=== PATIENT | female | born 1955 | race Caucasian/White ===

== ENCOUNTER → 2018-08-21 | Day surgery (SDC) | payer OTHER ==
--- NOTE | 2018-08-21 12:19 | RAD REPORT ---
EXAM DESCRIPTION: Ultrasound-guided vacuum assisted left breast core biopsy CLINICAL HISTORY: Breast mass N63.0, R92.8 COMPARISON: No comparisons FINDINGS: Informed consent was obtained and time-out was performed. The patient's left breast was prepped and draped in the usual sterile fashion. 1% lidocaine was used for local anesthetic purposes. Utilizing aseptic technique and ultrasound guidance, a 12 gauge vacuum assisted core biopsy device wa s used to obtain 2 core specimens through the mass of interest. A post biopsy clip was then placed. All collected material was sent for cytology. Patient tolerated procedure well. IMPRESSION: Successful ultrasound guided vacuum assisted left breast mass biopsy.
== END ==
LOC: DS 10:40
PROVIDERS: ATTEND General Practice
DX: C50.912 Malignant neoplasm of unspecified site of left female breast (principal); Z17.0 Estrogen receptor positive status [ER+]
CPT/HCPCS: 19083; 88305

== ENCOUNTER 2020-04-19 09:09 | Emergency (ER) | payer OTHER ==
--- OUTSIDE RECORDS SUMMARY | 2020-04-19 09:15 | XMS REPORT | Clinical Summary ---
:1955 Author Organization [facility] Address [address] [place] [address] Care Team Providers Name Role Phone Reid Duran MD Primary Care Provider Allergies Active Allergy Reactions Severity Noted Date Comments Amoxicillin-Pot Clavulanate Itching, Rash Low 04/07/2005 Codeine GI Intolerance Low 04/07/2005 Medications Medication Sig Dispensed Refills Start Date End Date Status fluticasone/vilantero Inhale 1 puff every 0 Active l (BREO ELLIPTA INHL) morning. loratadine (CLARITIN) Take 10 mg by mouth 0 Active 10 mg tablet daily as needed for allergies. albuterol (PROAIR Inhale 1 puff daily 0 Active HFA) 90 mcg/actuation as needed for inhaler wheezing or shortness of breath (rescue inhaler). Active Problems Not on file Surgical History Surgery Date Site/Laterality Comments LAMINECTOMY c4-5 CHOLECYSTECTOMY HERNIA REPAIR HYSTERECTOMY BREAST EXCISIONAL BIOPSY Right MASTECTOMY, PARTIAL 10/16/2018 Breast/Left Procedure: L EFT ROBER CLIMATE CHANGE RISK ASSESSOR LOCALIZATION SEG MENTAL MASTECTOMY; Amando geon: Jo Ball MD; Location: [facility] Main OR; S ervice: General; Latera lity: Left; BIOPSY, LYMPH NODE, SENTINEL 10/16/2018 Breast/Left Pro cedure: LEFT INTRAOPERATIVE LYMPHATIC MAPPIN G SENTINEL LYMPH NODE BIOPS Y; Surgeon: Jo Ball MD; Location: [facility] OR; Service: General ; Laterality: Left; Medical History Medical History Date Comments Asthma Wears glasses Influenza vaccination not up to date 2017 Exercise intolerance NO FORMAL EXERCISE, SOB WITH ASTHMA FLARE UP, USUALLY NO SOB/C P Family History Medical History Relation Name Comments Heart disease Father Hyperlipidemia Mother Hypertension Mother Thyroid disease Mother Relation Name Status Comments Father Mother Alive Social History Tobacco Use Types Packs/Day Years Used Date Never Smoker Smokeless Tobacco: Never Used Alcohol Use Drinks/Week oz/Week Comments Never Alcohol Habits Answer Date Recorded How often do you have a drink containing alcohol? Never 10/15/2018 How many drinks containing alcohol do you have on a typical Not asked day when you are drinking? How often do you have six or more drinks on one occasion? No t asked Sex Assigned at Date Recorded Not on file Last Filed Vital Signs Not on file Plan of Treatment Health Maintenance Due Date Last Done Comments COVID-19 VACCINE (1 of 2) 1972 CERVICAL CANCER SCREENING 1977 COLONOSCOPY SCREENING 2006 SHINGLES VACCINES (#1) 2006 INFLUENZA VACCINE 11/06/2019 BREAST CANCER SCREENING 10/15/2020 10/15/2018 Results Not on fileafter 04/19/2019 Advance Directives For more information, please contact: [phone] Type Date Recorded Patient Oracle Etl Developer Explanati on Advance Directives, Living Will 10/15/2018 9:22 AM and Medical Power of Registered Vascular Technologist (Rvt)
--- OUTSIDE RECORDS SUMMARY | 2020-04-19 09:15 | XMS REPORT | Continuity of Care Document ---
:1955 Author Organization [facility] t Address [address] [place] [address] Care Team Providers Name Role Phone Reid Duran MD Primary Care Physician Renee ALEJANDRO, Megha Mathews Attending Clinician [phone] Andrew MCDONNELL Attending Clinician Luis JAY, F Attending Clinician Unavailable Payers Payer Name Policy Type Policy Number Effective Date Expiration Date S tyrone BRIGHT MANAGED [id number] 2012 MD Abbi agosto CARECIGNA O 00:00:00 POS OPEN [id number] 2012-Rafa Becker Problems Condition Condition Condition Status Onset Resolution Last Treating Co mments Source Name Details Category Date Date Treatment Clinician Date 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 Allergies, Adverse Reactions, Alerts Allergy Allergy Status Severity Reaction(s) Onset Inactive Treating Comm ents Source Name Type Date Date Clinician Amoxicil Propensi Active Itching, [place] adam-Pot ty to Rash 04-07 Methodi Clavulan adverse 00:00: st ate reaction 00 s to drug Codeine Propensi Active GI Leonardo ty to Intolerance 04-07 Metho di adverse 00:00: st reaction 00 s to drug Family History Family Member Diagnosis Comments Start Date Stop Date Source Natural father Heart disease [place] [facility] Natural father -Other cancer Sky rson Natural mother Hyperlipidemia [place] Natural mother Hypertension Leonardo [facility] Natural mother Thyroid disease [place] Maternal aunt Cancer MD Martinez Paternal grandmother -Liver cancer Jayden Juan Social History Social Habit Start Date Stop Date Quantity Comments [facility] St[facility] Dr[facility] Meth odist Alcohol Binge Sex Assigned At F MD Stafford on Tobacco use and 2018-11-25 2018-11-25 Never used MD [place] on exposure 00:00:00 00:00:00 Alcohol intake 2018-11-25 2018-11-25 Lifetime MD Go n 00:00:00 00:00:00 non-drinker (finding) History SDOH 2018-10-15 2018-10-15 1 [place] Meth odist Alcohol Frequency 00:00:00 00:00:00 Tobacco Comment 2018-09-15 2018-09-15 My DAD smoked in MD Martinez 00:00:00 00:00:00 the house when I lived at home until I was 20 years old Smoking Status Start Date Stop Date Source Never smoker MD Martinez Medications Ordered Filled Start Stop Current Ordering Indication Dosage Frequency Signature Comments Components Source Medication Medication Date Date Medication? Clinician (SIG) Name Name loratadine 2019-04 Yes 10mg Take 10 mg M D (CLARITIN) 0-31 by mouth Yair so 10 mg 08:20: daily as n tablet 35 needed for allergies. acetaminoph 2019-04 Yes 1000mg Take 1,000 MD en 0-31 mg by Anderso (TYLENOL) 08:20: mouth n 500 mg 35 every 6 tablet (six) hours as needed for mild pain. naproxen 2019-04 Yes Take by sodium 0-31 mouth as Anderrol (ALEVE 08:20: needed. n ORAL) 35 albuterol 2019-04 Yes Inhale by (Ventolin 0-31 mouth. Anderso HFA) 90 08:20: n mcg/puff 35 inhaler fluticasone Yes 1{puff} QD Inhale 1 Leonardo /vilanterol 7-12 puff every Me thodi (BREO 21:36: morning. st ELLIPTA 21 INHL) loratadine Yes 10mg Q24H Take 10 mg [place] (CLARITIN) 7-12 by mouth Metho di 10 mg 21:36: daily as st tablet 21 needed for allergies. albuterol Yes 1{puff} Q24H Inhale 1 [place] (PROAIR 7-12 puff daily Method i HFA) 90 21:36: as needed st mcg/actuati 21 for on inhaler wheezing or shortness of breath (rescue inhaler). fluticasone 2017-0 Yes daily. MD /vilanterol 04-07 Anderrol (BREO 00:00: n ELLIPTA 00 INHALATION) Vital Signs Vital Name Observation Time Observation Value Comments Source Systolic blood pressure 2019-09-14 16:56:41 123 mm[Hg] MD Martinez Diastolic blood pressure 2019-09-14 16:56:41 82 mm[Hg] MD Martinez Heart rate 2019-09-14 16:56:41 87 /min MD Yair felipe Body temperature 2019-09-14 16:56:41 36.72 Maribel MD Arnoldo hodge Respiratory rate 2019-09-14 16:56:41 18 /min MD Arnoldo hodge Body weight 2019-09-14 16:56:41 99.5 kg MD Yair felipe BMI 2019-09-14 16:56:41 40.89 kg/m2 MD Yair felipe Procedures Procedure Date / Time Performed Performing Clinician Sourc e MAMMO DIGITAL DIAGNOSTIC 2019-09-14 14:13:00 Td Morales MD BILATERAL W EDY Plan of Care Planned Activity Planned Date Details Comments Source Future Scheduled 2020-10-15 BREAST CANCER [facility] thodist Test 00:00:00 SCREENING [code = BREAST CANCER SCREENING] Future Scheduled 2019-11-06 INFLUENZA VACCINE [place] Test 00:00:00 [code = INFLUENZA VACCINE] Future Scheduled 2006 COLONOSCOPY SCREENING [facility] Test 00:00:00 [code = COLONOSCOPY SCREENING] Future Scheduled 2006 SHINGLES VACCINES [place] Test 00:00:00 (#1) [code = SHINGLES VACCINES (#1)] Future Scheduled [address] [facility] thodist Test 00:00:00 malignant neoplasm of cervix (procedure) [code = 747741494] Future Scheduled 1972 COVID-19 VACCINE (1 [place] Test 00:00:00 of 2) [code = COVID-19 VACCINE (1 of 2)] Encounters Start End Encounter Admission Attending Care Care Encounter Source Date/Time Date/Time Type Type Clinicians Facility Department ID 2018-10-16 2018-10-16 Outpatient [facility] [id number] 004 [place] 00:00:00 00:00:00 Jen DURAN Results Test Description Test Time Test Comments Results Result Sourc e Comments Mammography There is no MD Juan Huff 9 mammographic evidence Diagnostic 14:17:32 of malignancy. Routine Bilateral with follow-up mammogram in Ed[place] 1 year is recommended. BI-RADS Category 2:Benign Finding(s) Interface, Radiology Results In - 09/14/2019 9:17 AM CDTCLINICAL INDICATION:Patient is a 63 year old female and is seen for breast cancer MAMMO DIGITAL DIAGNOSTIC BILATERAL W TOMODigital Mammogram evaluated with Computer Aided Detection (CAD). COMPARISON:Comparison is made with prior exams dating back to 08/18/2018. FINDINGS:There are scattered areas of fibroglandular density. 1: There is a new post surgical scar with associated surgical clips in the leftbreast. 2: There are multiple post surgical scars in the right breast. A biopsy clip is identified in the left breast denoting site of stereotacticbiopsy demonstrating radial scar. Tomosynthesis performed in CC and MLO projections. IMPRESSION:There is no mammographic evidence of malignancy. Routine follow-up mammogram in 1 year is recommended. BI-RADS Category 2:Benign Finding(s)
[2020-04-19 10:06] LABS: Basophils % 1.1 % (0-1.3); Lymphocytes % 25.2 % (15.3-44.8); MPV 10.8 fL (7.6-11.3); RBC Red Blood Cell Count 5.17 M/uL (3.86-4.86)
[2020-04-19] MEDS ORDERED: KETOROLAC 30 MG/ML INJ ONE (10:23)
[2020-04-19] MEDS ORDERED: COLCHICINE 0.6 MG TAB ONE ×2 (10:23→13:14)
[2020-04-19 12:08] LABS: Potassium 4.1 mmol/L (3.5-5.1); Uric Acid 7.7 mg/dL (2.6-6.0)
--- NOTE | 2020-04-19 12:44 | ER ---
Nurse's Notes [facility] Name: Jojo Dutton Age: 64 yrs Sex: Female : 1955 Arrival Date: 04/19/2020 Time: 09:11 Bed 18 Private MD: Diagnosis: Gout Presentation: 04/19 09:12 Chief complaint: Patient states: right foot pain and swelling that began Friday. Pt aa5 denies known injury. 09:12 Coronavirus screen: Client denies travel out of the [place] in the last 14 days. At this aa5 time, the client does not indicate any symptoms associated with coronavirus-19. Ebola Screen: Patient negative for fever greater than or equal to 101.5 degrees Fahrenheit, and additional compatible Ebola Virus Disease symptoms. Risk Assessment: Do you want to hurt yourself or someone else? Patient reports no desire to harm self or others. Onset of symptoms was April 2020. 09:12 Acuity: CYNTHIA 3 aa5 09:12 Method Of Arrival: Wheelchair aa5 10:23 Initial Sepsis Screen: Does the patient meet any 2 criteria? No. Patient's initial jd3 sepsis screen is negative. Does the patient have a suspected source of infection? No. Patient's initial sepsis screen is negative. Historical: - Allergies: 09:23 Augmentin; aa5 09:23 Codeine; aa5 - Home Meds: 09:23 Breo Ellipta inhalation inhalation [Active]; aa5 - PMHx: 09:23 Asthma; aa5 - Immunization history:: Adult Immunizations unknown. - Social history:: Smoking status: unknown. Screenin:22 Abuse screen: Denies threats or abuse. Nutritional screening: No deficits noted. jd3 Tuberculosis screening: No symptoms or risk factors identified. Fall Risk Ambulatory Aid- None/Bed Rest/Nurse Assist (0 pts). Gait- Normal/Bed Rest/Wheelchair (0 pts) Mental Status- Oriented to own ability (0 pts). Total Mchugh Fall Scale indicates No Risk (0-24 pts). Assessment: 10:21 General: Appears in no apparent distress. uncomfortable, Behavior is calm, cooperative, jd3 appropriate for age. Pain: Complains of pain in right foot Quality of pain is described as sharp, tender, Aggravated by increased activity, weight bearing. Neuro: Level of Consciousness is awake, alert, obeys commands, Oriented to person, place, time, situation. Cardiovascular: Denies chest pain, Capillary refill < 3 seconds Patient's skin is warm and dry. Respiratory: Airway is patent Respiratory effort is even, unlabored, Respiratory pattern is regular, symmetrical, Denies cough, shortness of breath. GI: No signs and/or symptoms were reported involving the gastrointestinal system. : No signs and/or symptoms were reported regarding the genitourinary system. EENT: No signs and/or symptoms were reported regarding the EENT system. Derm: Skin is intact, Skin is dry, Skin is normal, Skin temperature is warm. Musculoskeletal: Circulation, motion, and sensation intact. Range of motion: intact in all extremities, Swelling present in right foot. 11:45 Reassessment: Patient appears in no apparent distress at this time. Patient and/or jd3 family updated on plan of care and expected duration. Pain level reassessed. Patient is alert, oriented x 3, equal unlabored respirations, skin warm/dry/pink. Patient states feeling better. 13:18 Reassessment: Patient appears in no apparent distress at this time. Patient and/or jd3 family updated on plan of care and expected duration. Pain level reassessed. Patient is alert, oriented x 3, equal unlabored respirations, skin warm/dry/pink. Patient states feeling better. Vital Signs: 09:22 BP 154 / 77; Pulse 74; Resp 17; Temp 98.0(O); Pulse Ox 100% on R/A; mh5 10:23 BP 152 / 69; Pulse 75; Resp 17 S; Pulse Ox 99% on R/A; jd3 11:48 BP 136 / 63; Pulse 61; Resp 17 S; Pulse Ox 100% on R/A; jd3 13:18 BP 144 / 69; Pulse 62; Resp 17 S; Pulse Ox 98% on R/A; jd3 ED Course: 09:11 Patient arrived in ED. as 09:12 Arm band placed on Patient placed in an exam room, on a stretcher. aa5 09:15 Liss Stokes FNP-C [facility] kb 09:15 Natanael Lamas MD is Attending Physician. kb 09:22 Triage completed. aa5 09:23 Patient has correct armband on for positive identification. Bed in low position. Call [facility] light in reach. Side rails up X 1. Pulse ox on. NIBP on. 09:48 Indio Ravi, RN is Primary Nurse. jd3 10:00 Inserted saline lock: 22 gauge in left forearm, using aseptic technique. Blood jd3 collected. 13:18 No provider procedures requiring assistance completed. IV discontinued, intact, jd3 bleeding controlled, No redness/swelling at site. Pressure dressing applied. Administered Medications: 10:13 Drug: colchicine 0.6 mg Route: PO; jd3 11:00 Follow up: Response: No adverse reaction jd3 10:14 Drug: TORadol - Ketorolac 15 mg Route: IVP; Site: left forearm; jd3 11:00 Follow up: Response: No adverse reaction jd3 13:04 Drug: Colcrys 0.6 mg Route: PO; zb 13:19 Follow up: Response: Medication administered at discharge. jd3 Outcome: 12:43 Discharge ordered by . jayshree 13:18 Discharged to home via wheelchair, with family. jd3 13:18 Condition: stable 13:18 Discharge instructions given to patient, Instructed on discharge instructions, follow up and referral plans. medication usage, Demonstrated understanding of instructions, follow-up care, medications. 13:20 Patient left the ED. jd3 Signatures: Liss Stokes, FISH AND WILDLIFE BIOLOGIST-C FISH AND WILDLIFE BIOLOGIST-Daly Rocha Audri, RN RN 5 Stephy Sosa [facility] Indio Ravi RN RN jd3 Brown, Zipporah, RN RN zb
--- NOTE | 2020-04-19 12:44 | EDPHYS ---
Physician Documentation [facility] Name: Jojo Dutton Age: 64 yrs Sex: Female : 1955 Arrival Date: 04/19/2020 Time: 09:11 Bed 18 Private MD: ED Physician Natanael Lamas HPI: 04/19 09:36 This 64 yrs old Female presents to ER via Wheelchair with complaints of Feet kb Swelling. 09:36 The patient presents with pain, swelling, tenderness. The complaints affect the right kb first toe. Context: The problem was sustained at home, resulted from an unknown cause, the patient can fully bear weight, the patient is able to ambulate. Onset: The symptoms/episode began/occurred 2 day(s) ago. Modifying factors: The symptoms are alleviated by nothing, the symptoms are aggravated by weight bearing, movement. Associated signs and symptoms: Pertinent positives: swelling, Pertinent negatives: calf tenderness, fever, nausea, numbness, rash, tingling, vomiting, warmth, weakness. Severity of symptoms: At their worst the symptoms were moderate, in the emergency department the symptoms are unchanged. The patient has not experienced similar symptoms in the past. The patient has not recently seen a physician. Pt reports she started feeling pain in right great toe joint on Friday afternoon. Reports swelling started and the pain became more intense yesterday. Symptoms have been progressive since then. Denies injury or trauma. Brother has gout, but pt has never been diagnosed. . Historical: - Allergies: 09:23 Augmentin; aa5 09:23 Codeine; aa5 - Home Meds: 09:23 Breo Ellipta inhalation inhalation [Active]; aa5 - PMHx: 09:23 Asthma; aa5 - Immunization history:: Adult Immunizations unknown. - Social history:: Smoking status: unknown. ROS: 09:36 Constitutional: Negative for fever, chills, and weight loss, Cardiovascular: Negative kb for chest pain, palpitations, and edema, Respiratory: Negative for shortness of breath, cough, wheezing, and pleuritic chest pain, Abdomen/GI: Negative for abdominal pain, nausea, vomiting, diarrhea, and constipation, Neuro: Negative for headache, weakness, numbness, tingling, and seizure. 09:36 MS/extremity: Positive for erythema, pain, swelling, tenderness, of the right first toe. Exam: 09:36 Constitutional: This is a well developed, well nourished patient who is awake, alert, kb and in no acute distress. Head/Face: Normocephalic, atraumatic. Chest/axilla: Normal chest wall appearance and motion. Nontender with no deformity. No lesions are appreciated. Cardiovascular: Regular rate and rhythm with a normal S1 and S2. No gallops, murmurs, or rubs. Normal PMI, no JVD. No pulse deficits. Respiratory: Lungs have equal breath sounds bilaterally, clear to auscultation and percussion. No rales, rhonchi or wheezes noted. No increased work of breathing, no retractions or nasal flaring. Abdomen/GI: Soft, non-tender, with normal bowel sounds. No distension or tympany. No guarding or rebound. No evidence of tenderness throughout. Neuro: Awake and alert, GCS 15, oriented to person, place, time, and situation. Cranial nerves II-XII grossly intact. Motor strength 5/5 in all extremities. Sensory grossly intact. Cerebellar exam normal. Normal gait. 09:36 Musculoskeletal/extremity: Extremities: grossly normal except: noted in the right first toe: erythema, pain, swelling, tenderness, ROM: intact in all extremities, Circulation is intact in all extremities. Sensation intact. Weight bearing: able to fully bear weight. Vital Signs: 09:22 BP 154 / 77; Pulse 74; Resp 17; Temp 98.0(O); Pulse Ox 100% on R/A; mh5 10:23 BP 152 / 69; Pulse 75; Resp 17 S; Pulse Ox 99% on R/A; jd3 11:48 BP 136 / 63; Pulse 61; Resp 17 S; Pulse Ox 100% on R/A; jd3 13:18 BP 144 / 69; Pulse 62; Resp 17 S; Pulse Ox 98% on R/A; jd3 MDM: 09:15 Patient medically screened. kb 09:36 Data reviewed: vital signs, nurses notes. Data interpreted: Pulse oximetry: on room air kb is 100 %. Interpretation: normal. 12:43 Counseling: I had a detailed discussion with the patient and/or guardian regarding: the kb historical points, exam findings, and any diagnostic results supporting the discharge/admit diagnosis, lab results, the need for outpatient follow up, a family practitioner, to return to the emergency department if symptoms worsen or persist or if there are any questions or concerns that arise at home. 12:44 Response to treatment: the patient's symptoms have markedly improved after treatment. kb 04/19 09:19 Order name: CBC with Diff; Complete Time: 10:47 kb 04/19 09:19 Order name: Basic Metabolic Panel; Complete Time: 12:11 kb 04/19 09:19 Order name: Uric Acid; Complete Time: 12:11 kb 04/19 09:19 Order name: IV Start; Complete Time: 10:00 kb Administered Medications: 10:13 Drug: colchicine 0.6 mg Route: PO; jd3 11:00 Follow up: Response: No adverse reaction jd3 10:14 Drug: TORadol - Ketorolac 15 mg Route: IVP; Site: left forearm; jd3 11:00 Follow up: Response: No adverse reaction jd3 13:04 Drug: Colcrys 0.6 mg Route: PO; zb 13:19 Follow up: Response: Medication administered at discharge. jd3 Disposition: 14:01 Co-signature as Attending Physician, Natanael Lamas MD. rn Disposition: 04/19/20 12:43 Discharged to Home. Impression: Gout. - Condition is Stable. - Discharge Instructions: Gout, Nyom-hj-Bhyd. - Prescriptions for indomethacin 25 mg Oral capsule - take 1 capsule by ORAL route 3 times per day with food; 15 capsule. - Medication Reconciliation Form, Thank You Letter, Antibiotic Education, Prescription Opioid Use form. - Follow up: Emergency Department; When: As needed; Reason: Worsening of condition. Follow up: Private Physician; When: 2 - 3 days; Reason: Recheck today's complaints, Continuance of care, Re-evaluation by your physician. Signatures: Dispatcher [employer] EDLiss Estes, DENTAL CHAIRSIDE ASSISTANT-C DENTAL CHAIRSIDE ASSISTANT-Ckb Natanael Lamas MD MD rn Calderon, Audri RN RN Indio Arevalo RN RN jd3 Brown, Zipporah, RN RN zb Corrections: (The following items were deleted from the chart) 13:20 12:43 04/19/2020 12:43 Discharged to Home. Impression: Gout. Condition is Stable. Forms jd3 are Medication Reconciliation Form, Thank You Letter, Antibiotic Education, Prescription Opioid Use. Follow up: Emergency Department; When: As needed; Reason: Worsening of condition. Follow up: Private Physician; When: 2 - 3 days; Reason: Recheck today's complaints, Continuance of care, Re-evaluation by your physician. kb
[2020-04-19 13:31] VITALS: BP 144/69; TEMP 98; O2SAT 98
== END 2020-04-19 13:20 | disposition home or self-care (01) ==
LOC: ER 09:09
DX: M10.9 Gout, unspecified (principal); Z88.6 Allergy status to analgesic agent; Z88.1 Allergy status to other antibiotic agents
CPT/HCPCS: 36415; 80048; 84550; 85025; 96374; 99284